=== PATIENT | male | born 1970 | race African-American/Black ===

== ENCOUNTER 2024-10-19 20:58 | Emergency (ER) | payer OTHER ==
[~2024-10-19] VITALS: Ht 180.3 cm; Wt 80.7 kg
[2024-10-19 21:27] LABS: IMMATURE GRANULOCYTE ABSOLUTE 0.02 K/uL (0-1); NUCLEATED RED BLOOD CELLS 0.0 % (0.0-0.19); PLATELET COUNT (AUTO) 255 K/uL (130-400); RED BLOOD CELL COUNT(AUTO) 5.59 MIL/uL (4.50-6.20); RED CELL DISTRIBUTION WIDTH 15.5 % (11.0-15.5); WHITE BLOOD COUNT (AUTO) 5.7 K/uL (4.8-10.8)
[2024-10-19 21:35] LABS: CREATININE 1.1 mg/dL (0.5-1.3); GLOMERULAR FILTR. RATE CALC 79.0 mL/min (>90); GLUCOSE,RANDOM 89.0 mg/dL (70-105); SODIUM SERUM 143.0 mmol/L (136-145); UREA NITROGEN, BLOOD 15.0 mg/dL (7-18)
[2024-10-19 21:39] LABS: INR 1.03 (0.85-1.15)
[2024-10-19 21:41] LABS: CREATINE KINASE, TOTAL 235.0 U/L (21-232)
[2024-10-19 22:43] VITALS: PULSE 56; RESP 17
--- NOTE | 2024-10-19 22:55 | HMCIMG ---
EXAM: CR Chest, 1 view CLINICAL HISTORY: Chest pain. COMPARISON: None provided. FINDINGS: The lungs show no infiltrates or other acute findings. No pleural effusion or pneumothorax. The cardiomediastinal silhouette is within normal limits. No acute osseous abnormality. IMPRESSION: No acute cardiopulmonary process is evident. /[place]
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
[2024-10-20 00:22] VITALS: BP 132/90; PULSE 60; RESP 14; TEMP 98.2; O2SAT 100
--- NOTE | 2024-10-20 07:14 | EKG ---
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
--- NOTE | 2024-10-20 07:14 | EKG ---
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
== END 2024-10-20 00:28 ==
LOC: EEVIPCON 20:58 → EDH 20:58
DX: R07.89 Other chest pain (principal); J45.901 Unspecified asthma with (acute) exacerbation; E78.00 Pure hypercholesterolemia, unspecified; I10 Essential (primary) hypertension; Z86.73 Personal history of transient ischemic attack (TIA), and cerebral infarction without residual deficits
CPT/HCPCS: 36415; 71045; 80048; 82550; 83735; 83880; 84484; 85025; 85610; 85730; 93005; 94640; 99285